=== PATIENT | female | born 1940 | race Caucasian/White ===

== ENCOUNTER → 2016-09-16 | Outpatient (CLI) | payer MEDICARE, BC ==
--- NOTE | 2016-09-16 17:08 | PCVCIMAG ---
APPROVED REPORT Study performed: 09/16/2016 15:16:54 EXAM: Comprehensive 2D, Doppler, and color-flow Echocardiogram Patient Location: Echo lab Status: routine Other Information Study Quality: Adequate Indications Palpitations Hypertension/HDD Abnormal coronary calcium score 2D Dimensions IVSd: 7.40 (7-11mm)LVOT Diam: 19.54 (18-24mm) LVDd: 37.24 mm PWd: 8.13 (7-11mm) LVDs: 17.17 (25-40mm) Left Atrium: 34.30 (27-40mm) Aortic Root: 21.87 mm LV Single Plane 4CH: 58.47 % LV Single Plane 2CH: 71.25 %Casiano's LVEF: 64.86 % Biplane EF: 66.5 % Volumes Left Atrial Volume (Systole) Single Plane 4CH: 46.22 mLSingle Plane 2CH: 47.24 mL LA ESV Index: 25.00 mL/m2 Aortic Valve AoV Peak Darek.: 1.67 m/s AO Peak Gr.: 11.53 mmHgLVOT Max P.29 mmHg LVOT Max V: 1.12 m/s ALIZA Vmax: 2.01 cm2 Mitral Valve E/A Ratio: 0.7 MV Decel. Time: 347.86 ms MV E Max Darek.: 0.63 m/s MV A Darek.: 0.90 m/s IVRT: 103.81 ms TDI E/Lateral E': 5.25E/Medial E': 12.60 Medial E' Darek.: 0.05 m/s Lateral E' Darek.: 0.12 m/s Pulmonary Valve PV Peak Darek.: 1.01 m/sPV Peak Gr.: 4.06 mmHg Pulmonary Vein P Vein S: 0.71 m/sP Vein A: 0.65 m/s P Vein D: 0.41 m/sP Vein A Dur.: 100.3 msec P Vein S/D Ratio: 1.73 Tricuspid Valve TR Peak Darek.: 2.28 m/s TR Peak Gr.: 20.72 mmHg TV Vmax: 0.52 m/sPA Pressure: 28.00 mmHg Left Ventricle The left ventricle is normal size. There is normal LV segmental wall motion. There is normal left ventricular wall thickness. Left ventricular systolic function is normal. The left ventricular ejection fraction is within the normal range. LVEF is 65-70%. The left ventricular diastolic function is normal. Right Ventricle The right ventricle is normal size. The right ventricular systolic function is normal. Atria The left atrium size is normal. The right atrium size is normal. Aortic Valve Aortic valve is trileaflet. Mild aortic valve sclerosis without stenosis or regurgitation. No aortic regurgitation is present. There is no aortic valvular stenosis. Mitral Valve The mitral valve is normal in structure. There is no mitral valve regurgitation noted. No evidence of mitral valve stenosis. Tricuspid Valve The tricuspid valve is normal in structure. Mild tricuspid regurgitation. Pulmonic Valve The pulmonary valve is normal in structure. There is no pulmonic valvular regurgitation. Great Vessels The aortic root is normal in size. The ascending aorta is normal in size. IVC is normal in size and collapses with >50% inspiration Pericardium There is no pericardial effusion. There is no pleural effusion. <Conclusion> The left ventricle is normal size. Left ventricular systolic function is normal. The left ventricular ejection fraction is within the normal range. LVEF is 65-70%. The left ventricular diastolic function is normal. The right ventricle is normal size. The left atrium size is normal. Aortic valve is trileaflet. Mild aortic valve sclerosis without stenosis or regurgitation. There is no mitral valve regurgitation noted. There is no pericardial effusion. Mild tricuspid regurgitation.
== END | disposition home or self-care (01) ==
LOC: PCVCCLINIC 13:45
PROVIDERS: ATTEND Internal Medicine Cardiovascular Disease
DX: I07.1 Rheumatic tricuspid insufficiency (principal); R93.1 Abnormal findings on diagnostic imaging of heart and coronary circulation; I25.10 Atherosclerotic heart disease of native coronary artery without angina pectoris; I10 Essential (primary) hypertension; E78.00 Pure hypercholesterolemia, unspecified; I49.3 Ventricular premature depolarization; Z79.899 Other long term (current) drug therapy
CPT/HCPCS: 80061; 93005; 93306; G0463